=== PATIENT | female | born 1995 | race Caucasian/White ===

== ENCOUNTER 2018-06-08 06:40 | Day surgery (SDC) | payer OTHER ==
[~2018-06-08] VITALS: Ht 157.5 cm; Wt 43.1 kg
[2018-06-08 06:51] VITALS: BP 129/71
[2018-06-08 11:45] VITALS: BP 122/85
== END 2018-06-08 12:40 | disposition home or self-care (01) ==
LOC: DS 06:40 → OR 07:30 → GI 07:30 → DS 12:40
PROVIDERS: Internal Medicine Gastroenterology
PROC: 0DB68ZX Excision of Stomach, Via Natural or Artificial Opening Endoscopic, Diagnostic (ICD-10-PCS; principal; 2018-06-08 07:30)
DX: K92.0 Hematemesis (principal); R10.13 Epigastric pain; F31.9 Bipolar disorder, unspecified
CPT/HCPCS: 43235; J1200; J1610; J2250; J2310; J3010; J3490